=== PATIENT | male | born 1975 | race African-American/Black ===

== ENCOUNTER 2017-08-18 15:00 | Emergency (ER) | payer OTHER ==
[~2017-08-18] VITALS: Ht 190.5 cm; Wt 105.4 kg
[2017-08-18] MEDS ORDERED: PERCOCET 5/31 TABLET PO (19:04)
[2017-08-18 19:41] VITALS: BP 166/99
== END 2017-08-18 19:44 ==
LOC: EME 15:00
DX: S02.31XB Fracture of orbital floor, right side, initial encounter for open fracture (principal); S02.2XXA Fracture of nasal bones, initial encounter for closed fracture; S01.01XA Laceration without foreign body of scalp, initial encounter; S01.512A Laceration without foreign body of oral cavity, initial encounter; S41.112A Laceration without foreign body of left upper arm, initial encounter; X99.9XXA Assault by unspecified sharp object, initial encounter; Y92.149 Unspecified place in prison as the place of occurrence of the external cause
CPT/HCPCS: 70450; 70486; 71020; 99281; 99285